=== PATIENT | female | born 1995 | race Caucasian/White ===

== ENCOUNTER → 2018-10-08 11:18 | Outpatient (CLI) | payer MEDICAID, SELFPAY ==
[2018-10-08 13:57] LABS: Hematocrit 39.4 % (37-47); Hemoglobin 13.2 g/dl (12.0-15.0); Mean Corp Hgb Conc 33.5 g/gl (32-36); Mean Corpuscular Volume 89.5 fL (81-99); Mean Platelet Vol. 10.7 fl (6.2-12.0); Platelet Count 319 K/mm3 (150-450); RBC Distribution Width CV 13.4 % (11.6-14.6); RBC Distribution Width SD 43.2 fl (35.1-43.9); White Blood Count 10.1 K/mm3 (4.4-11.0)
[2018-10-08 14:07] LABS: Scan Indicated on CBC? Y/N NO
[2018-10-08 14:16] LABS: Follicle Stimulating Hormone 3.1 mIU/mL; Free T3 3.1 pg/mL (2.18-3.98); Luteinizing Hormone 2.7 mIU/mL; Prolactin 4.4 ng/mL; T4 Free Direct 1.28 ng/dL (0.76-1.46); Thyroid Stim Hormone (TSH) 1.35 uIU/mL (0.358-3.74)
[2018-10-08 14:35] LABS: Hemoglobin A1c 5.2 % (4.2-6.3)
== END ==
PROVIDERS: Visit Provider Obstetrics & Gynecology
DX: N92.1 Excessive and frequent menstruation with irregular cycle (principal); R10.2 Pelvic and perineal pain
CPT/HCPCS: 36415; 83001; 83002; 83036; 84146; 84439; 84443; 84481; 85027